=== PATIENT | male | born 1975 | race Caucasian/White ===

== ENCOUNTER 2017-02-21 15:16 | Emergency (ER) | payer MEDICARE, MEDICAID ==
[~2017-02-21] VITALS: Ht 188 cm; Wt 76.2 kg
[~2017-02-21 15:16] MED LIST: AMOXICILLIN 50500 MG PO; AVPAK AZITHROM250 MG PO; FLEXERIL10 MG PO; GENSING OR; IBU-8800 MG PO; KEFLEX 500MG.500 MG PO; LORTAB 5/500 501 TAB PO; LYRICA75 MG PO; NAPROSYN500 M1 PO; ROBAXIN-750750 MG PO; TAMIFLU 75MG CA75 MG PO; TORADOL10 MG PO; TYLENOL W/CODEI1 TA2 PO; VICODIN 5/500 T1 TAB PO; VOLTAREN75 MG PO; WELLBUTRIN 150150 MG PO
[2017-02-21] MEDS ORDERED: FLONASE 50 MCG16 GM (15:43)
[2017-02-21] MEDS ORDERED: CLARITIN 10MG T10 MG PO (15:43)
[2017-02-21 15:44] VITALS: BP 167/59
--- NOTE | 2017-02-21 15:44 | Urgent Treatment Center Report ---
History of Present Issue Date/Time Seen by Provider 02/21/17 1530 Visit Reason Pt arrived:Walked Presenting Problem:BOTH EARS HURT AND H/A FOR 3 WEEKS Location if Accident: Onset of symptoms date/time:/ or onset unknown for:MEDICAL HX UNKNOWN Have you (or family members/close friends) recently traveled outside the [place]? N If Yes, where/when: Have you had exposure to infectious disease within the past month? TB? Other? Specify: c/o continued pain curtis ears with intermittent headaches. Present for 3-4 weeks now. Was seen at clinic approx 2 weeks ago. Dx curtis OM per report and prescribed amoxicillin. Completed 10 day prescription. pain changed. Now more pressure. Worse at night. No fever. + rhinorrhea, sneezing, PND. No other medications or treatments have been tried. Reports BP always high at medical appointments. Did check it recently at [facility]. Number unknown. "Just said I am at risk". Has not discussed w/ PCP, Dr. Valenzuela. Denies chest pain or SOA. Gets lightheaded at times w/ moving quickly. Drinks multiple energy drinks/red bulls as well as coffee throughout the day. Source patient, family Exam Limitations no limitations ALLERGIES Coded Allergies: diphenhydramine (From BENADRYL) (Mild, 12/13/15) peanut (Mild, 12/13/15) Home Medications Reported Medications Pregabalin (Lyrica 75MG) 75 MG PO BID #60 History Medical History General CAD? No Angina: No [place]: No Hypertension? No Hyperlipidemia? No CHF? No DVT? No PE? No COPD? No Asthma? No Anemia? No GERD? No Gastric ulcers? No GI Bleed? No Hernia? No Thyroid Problems? No Hypothyroidism? No CVA? No Seizures? No Diabetes? No Renal Insuffiency? No UTI? No Stones? No BPH? No GB Disease: No Nephritic Syndrome? No Asplenia? No Hepatitis? No Sickle Cell Disease? No Arthritis? No Migraines? No Cataracts? No Glaucoma? No MRSA? No HIV? No TB? No Anxiety? No Depression? No Cancer? No Immunization HX DT/Tetanus 1-4 Years Ago Surgical Hx Previous Surgery?Y LEFT AKA Tonsils BILATERAL EARTUBES GALLBLADDER Social History Smoking Hx Smoker: Current Every Day Smoker Tobacco: Yes Type Cigarettes Packs/day < 1 Pack Alcohol Alcohol: No Review of Systems All Other Systems Reviewed and Negative Constitutional denies fever, denies malaise, denies weakness Eyes denies drainage, denies pain, denies vision change ENT see HPI, nose congestion ("a little here and there"), throat pain ("at times in the morning"). denies: ear discharge, throat swelling, other (change in hearing ). Respiratory see HPI, denies cough Cardiovascular see HPI, denies edema, denies palpitations Gastrointestinal denies nausea, denies vomiting Skin denies rash Psychiatric/Neurological see HPI, denies numbness, denies tingling Physical Exam Vital Signs Vital Signs Date Time Temp Pulse Resp B/P Pulse O2 O2 Flow FiO2 Ox Delivery Rate 02/21 1524 97.9 70 20 167/59 98 General Appearance no apparent distress, left BKA Eye Exam - bilateral eye normal exam Ear, Nose, Throat curtis EACs and TMs normal, clear fluid bubbles visible behind TMs, turbinates boggy, thick clear PND w/ cobblestoning Neck non-tender, supple Respiratory Status No: respiratory distress, productive cough, non productive cough. Lung Sounds anterior: lungs clear. posterior: lungs clear. bilateral: lungs clear. Cardiovascular regular rate/rhythm, no peripheral edema, no murmur Neurologic alert, oriented x 3 Mental status normal mood/affect Skin normal color, warm/dry Lymphatic no adenopathy Medical Decision Making LABS/Meds/Orders Pt receiving controlled substance in ED? No Progress [facility] Progress Notes Date 02/21/17 Time 1538 Comment Tried to discuss dx, risks and POC with patient. He continously makes jokes of his past situation (amputation) as well as current symptoms. "You only live once " pt reports Departure Departure Time of Disposition 1536 Disposition DC Home or Self Care(routine) Clinical Impression Primary Impression: Environmental allergies Secondary Impressions: High blood pressure Qualifiers: Hypertension type: unspecified Qualified Code: I10 - Essential ( primary) hypertension Condition STABLE Referrals CHARLEE VALENZUELA Call today and schedule follow up appt to discuss high blood pressure. You need treatment. Without treatment, you are at great risk for further medical complications including but not limited to heart attack, stroke, and even . Patient Instructions DI for Allergic Rhinitis, DI for High Blood Pressure Additional Instructions Start claritin daily Start flonase 2 sprays each nostril daily sleep elevated humidifier/vaporizer as needed avoid sodium in your food and drinks wean caffeine. This includes energy drinks and coffee follow up with PCP for treatment and further workup for high blood pressure Discharge Counseling Counseled pt/family regarding diagnosis, medications/RX, home care, follow up needs Prescriptions Current Visit Scripts Loratadine (Claritin 10MG) 10 MG PO DAILY #30 TAB Fluticasone Propionate (Flonase 50 Mcg Nasal [place]) 2 SPRAY NA DAILY #1 BOT at 1554
--- OUTSIDE RECORDS SUMMARY | 2017-03-01 14:44 | External Medical Summary Rpt | CCD ---
Author Author , HARLEY SOUZA Address Unknown Phone [email or web address] Purpose Continuity of Care Document - through 2016
--- OUTSIDE RECORDS SUMMARY | 2017-03-01 14:44 | External Medical Summary Rpt | CCD ---
Demographics Preferred Language Pakistani Marital Status Unknown Sikh Affiliation Unknown Race Unknown Ethnic Group Unknown Author Author , HARLEY SOUZA Address Unknown Phone Immunization No patient found.
--- OUTSIDE RECORDS SUMMARY | 2017-03-01 14:44 | External Medical Summary Rpt | CCD ---
Author Author , HARLEY SOUZA Address Unknown Phone [email or web address] Purpose Continuity of Care Document - through 2016
--- OUTSIDE RECORDS SUMMARY | 2017-03-01 14:44 | External Medical Summary Rpt | CCD ---
Author Author [employer] Address Unknown Phone Unavailable Purpose Continuity of Care Document - through 2016
--- OUTSIDE RECORDS SUMMARY | 2017-03-01 14:44 | External Medical Summary Rpt ---
Author Author HARLEY Solitario, HARLEY Sol[employer] Organization [employer] Address Unknown Phone Unavailable
--- OUTSIDE RECORDS SUMMARY | 2017-03-01 14:44 | External Medical Summary Rpt | CCD ---
Demographics Preferred Language Bahraini Marital Status Unknown Gnosticist Affiliation Unknown Race Unknown Ethnic Group Unknown Author Author , HARLEY SOUZA Address Unknown Phone Immunization No patient found.
== END 2017-02-21 15:45 | disposition home or self-care (01) ==
LOC: UTC 15:16
DX: J30.2 Other seasonal allergic rhinitis (principal); I10 Essential (primary) hypertension; Z88.8 Allergy status to other drugs, medicaments and biological substances

== ENCOUNTER 2017-02-26 17:19 | Emergency (ER) | payer MEDICARE ==
[~2017-02-26] VITALS: Ht 188 cm; Wt 72.6 kg
[~2017-02-26 17:19] MED LIST changes: +CLARITIN 10MG T10 MG PO; +FLONASE 50 MCG16 GM
--- NOTE | 2017-02-26 17:40 | Emergency Room Report ---
History of Present Illness Time Seen by 1254 Presenting Problem in Triage Pt arrived:Walked Presenting Problem:PT STATES HE WAS PULLING UP ON A TIRE AND FELT A PULL IN HIS EPIGASTRIC AREA THAT RADIATES INTO RIGHT ABDOMEN. PT STATES HE NOW HAS A "KNOT " AT THE SITE AND THAT HE IS CONCERNED BECAUSE HE HAD HIS GALBLADDER SURGERY THERE. Onset of symptoms date/time:/ or onset unknown for:MEDICAL HX UNKNOWN Treatment Prior to Arrival: ADMINISTRATIVE TECH Provided by: Sepsis Risk Assessment: Temp: 98.6 B/P: 146/96 MAP: 112 Pulse: 98 Resp: 20 Recent fever? N Clinical Suspician of Infection? N Mental Status: 1 - Regular (Normal Baseline) Sepsis Risk:Possible Sepsis Risk Have you (or family members/close friends) recently traveled outside the [place]? N If Yes, where/when: Have you had exposure to infectious disease within the past month? TB? Other? Specify: Right rib pain since changing a tire four days ago. No SOB. No vomiting. No blood from above or below. Pain is positional. 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 ALLERGIES Coded Allergies: diphenhydramine (From BENADRYL) (Mild, 12/13/15) peanut (Mild, 12/13/15) Home Medications Active Scripts Loratadine (Claritin 10MG) 10 MG PO DAILY #30 TAB Prov: 02/21/17 Fluticasone Propionate (Flonase 50 Mcg Nasal [place]) 2 SPRAY NA DAILY #1 BOT Prov: 02/21/17 Reported Medications Pregabalin (Lyrica 75MG) 75 MG PO BID #60 History Medical History General CAD? No Angina: No [place]: No Hypertension? No Hyperlipidemia? No CHF? No DVT? No PE? No COPD? No Asthma? No Anemia? No GERD? No Gastric ulcers? No GI Bleed? No Hernia? No Thyroid Problems? No Hypothyroidism? No CVA? No Seizures? No Diabetes? No Renal Insuffiency? No End Stage Renal Disease? No UTI? No Stones? No BPH? No GB Disease: No Nephritic Syndrome? No Asplenia? No Hepatitis? No Sickle Cell Disease? No Arthritis? No Migraines? No Cataracts? No Glaucoma? No MRSA? No HIV? No TB? No Anxiety? No Depression? No Cancer? No Immunization Hx DT/Tetanus 1-4 Years Ago Surgical Hx Previous Surgery?Y LEFT AKA Tonsils BILATERAL EARTUBES GALLBLADDER Social History Smoking Hx Smoker: Current Every Day Smoker Tobacco: Yes Type Cigarettes Packs/day < 1 Pack Alcohol Alcohol: No Review of Systems All Other Systems Reviewed and Negative Musculoskeletal see HPI Physical Exam Vital Signs Vital Signs Date Time Temp Pulse Resp B/P Pulse O2 O2 Flow FiO2 Ox Delivery Rate 02/26 1727 98.6 98 20 146/96 98 General Appearance normal appearance, WD/WN, no apparent distress (mirrored sunglasses) Neck normal inspection, non-tender, supple, full range of motion Respiratory Status Yes: trachea midline, chest symmetrical, non tender chest, tender on palpation. No: respiratory distress, use of accessory muscles, pain on inspiration, pain on expiration, productive cough, non productive cough (R ribs musculature tender). Lung Sounds bilateral: normal breath sounds, lungs clear (no subcutaneous air). Cardiovascular normal exam, regular rate/rhythm, no peripheral edema, no JVD, no murmur Gastrointestinal normal bowel sounds, normal exam, soft, no organomegaly, no pulsatile mass, no guarding, no rebound, tenderness (right ribs, inferiorly/ mediall) Extremities non-tender (hx crush/amputation LAKA) Neurologic alert, normal exam, no motor/sensory deficits (L AKA) Glascow Coma Scale Glascow Coma Scale Response Value EYE response: 4 Spontaneously 4 MOTOR response: 6 OBEYS 6 VERBAL response: 5 Oriented & Converses 5 Total 15 Mental status normal mood/affect Medical Decision Making LABS/Meds/Orders Pt receiving controlled substance in ED? No Results/Orders Orders Procedure Date/time Status KUB (SINGLE VIEW) 02/26 1737 Active CHEST-PORTABLE 02/26 1737 Active XRAY/CT/US XRAY/CT/US XRAY chest, abdomen XR interpretation by reviewed by me Xray Results normal/NAD, no infiltrates, normal heart size, normal lung inflation curtis (increased stool neg FA or obst) Departure Departure Time of Disposition 1800 Disposition DC Home or Self Care(routine) Clinical Impression Primary Impression: Abdominal wall pain Condition STABLE Referrals CHARLEE VALENZUELA Patient Instructions DI for Musculoskeletal Pain Additional Instructions Rx Naproxen, use moist heat, see Dr. Valenzuela for recheck in one to two days. Discharge Counseling Counseled pt/family regarding diagnosis, test results, medications/RX, home care, follow up needs Prescriptions Current Visit Scripts NAPROXEN (NAPROXEN 500MG TAB) 500 MG PO BIDP PRN pain #20 TAB ED Critical Care Critical Care No at 1804
[2017-02-26] MEDS ORDERED: NAPROXEN SODIU500 MG PO (18:03)
[2017-02-26 18:06] VITALS: BP 130/76
--- NOTE | 2017-02-27 09:57 | RADIOLOGY REPORT PS360 ---
CHEST-PORTABLE HISTORY: Right-sided chest pain strained when lifting has R rib pain ORDERING PHYSICIAN: Jenni Fernandez MD PATIENT AGE: 41 years COMPARISON: 08/30/2011 FINDINGS: The cardiomediastinal silhouette and pulmonary vascularity are within normal limits. The lungs are clear without infiltrates, suspicious nodules, or pleural effusions. Old granulomatous disease. No acute bony abnormalities. Old right clavicular fracture IMPRESSION: No change with no acute finding
--- NOTE | 2017-02-27 09:57 | RADIOLOGY REPORT PS360 ---
KUB (SINGLE VIEW) HISTORY: strained when lifting has R rib pain ORDERING PHYSICIAN: Jenni Fernandez MD PATIENT AGE: 41 years COMPARISON: None FINDINGS: The bowel gas pattern is unremarkable. No obvious obstruction.. No abnormal calcifications are evident. No obvious renal or ureteral calculi.. No acute bony anomalies evident. There are surgical clips in right upper quadrant. IMPRESSION: Negative KUB, no acute finding
--- OUTSIDE RECORDS SUMMARY | 2017-03-03 03:13 | External Medical Summary Rpt | CCD ---
Author Author , HARLEY SOUZA Address Unknown Phone [email or web address] Purpose Continuity of Care Document - through 2016
--- OUTSIDE RECORDS SUMMARY | 2017-03-03 03:13 | External Medical Summary Rpt | CCD ---
Author Author , HARLEY SOUZA Address Unknown Phone Purpose Continuity of Care Document - through 2016
--- OUTSIDE RECORDS SUMMARY | 2017-03-03 03:13 | External Medical Summary Rpt | CCD ---
Demographics Preferred Language Zimbabwean Marital Status Unknown Buddhist Affiliation Unknown Race Unknown Ethnic Group Unknown Author Author , HARLEY SOUZA Address Unknown Phone Immunization No patient found.
--- OUTSIDE RECORDS SUMMARY | 2017-03-03 03:13 | External Medical Summary Rpt | CCD ---
Demographics Preferred Language German Marital Status Unknown Methodist Affiliation Unknown Race Unknown Ethnic Group Unknown Author Author , HARLEY SOUZA Address Unknown Phone Immunization No patient found.
== END 2017-02-26 18:06 | disposition home or self-care (01) ==
LOC: ER 17:19
DX: R10.816 Epigastric abdominal tenderness (principal); Z88.8 Allergy status to other drugs, medicaments and biological substances; F17.210 Nicotine dependence, cigarettes, uncomplicated

== ENCOUNTER 2017-03-23 11:31 | Emergency (ER) | payer MEDICARE ==
[~2017-03-23] VITALS: Ht 185.4 cm; Wt 84.8 kg
[~2017-03-23 11:31] MED LIST changes: +NAPROXEN SODIU500 MG PO
--- OUTSIDE RECORDS SUMMARY | 2017-03-23 11:49 | External Medical Summary Rpt | CCD ---
Author Author , HARLEY SOUZA Address Unknown Phone [email or web address] Purpose Continuity of Care Document - through 2016 Problems Code Diagnosis DOS Provider Status J40 BRONCHITIS, NOT SPECIFIED ACUTE OR CHRONIC R10.9 UNSPECIFIED ABDOMINAL PAIN T14.8 OTHER INJURY OF UNSPECIFIED BODY REGION
--- OUTSIDE RECORDS SUMMARY | 2017-03-23 11:49 | External Medical Summary Rpt ---
Author Author HARLEY Solit[employer], [employer] Address Unknown Phone Unavailable
--- OUTSIDE RECORDS SUMMARY | 2017-03-23 11:49 | External Medical Summary Rpt | CCD ---
Demographics Preferred Language Congolese Marital Status Unknown Orthodoxy Affiliation Unknown Race Unknown Ethnic Group Unknown Author Author , HARLEY SOUZA Address Unknown Phone Immunization No patient found.
--- OUTSIDE RECORDS SUMMARY | 2017-03-23 11:49 | External Medical Summary Rpt | CCD ---
Author Author , HARLEY SOUZA Address Unknown Phone [email or web address] Purpose Continuity of Care Document - through 2016 Problems Code Diagnosis DOS Provider Status J40 BRONCHITIS, NOT SPECIFIED ACUTE OR CHRONIC R10.9 UNSPECIFIED ABDOMINAL PAIN T14.8 OTHER INJURY OF UNSPECIFIED BODY REGION
--- OUTSIDE RECORDS SUMMARY | 2017-03-23 11:49 | External Medical Summary Rpt | CCD ---
Demographics Preferred Language Belgian Marital Status Unknown Yazdanism Affiliation Unknown Race Unknown Ethnic Group Unknown Author Author , HRALEY SOUZA Address Unknown Phone Immunization No patient found.
--- NOTE | 2017-03-23 11:57 | Emergency Room Report ---
History of Present Illness Time Seen by MD Babin Presenting Problem in Triage Pt arrived:Wheelchair Presenting Problem:PT STATES THAT HE FELL OVER THE DOG ON 03/20/17 WITH C/O OF BILATERAL HIP AND LOWER BACK PAIN Onset of symptoms date/time:03/20/17 or onset unknown for: Treatment Prior to Arrival: MANAGER SOUND Provided by: Sepsis Risk Assessment: Temp: 98.5 B/P: 162/78 MAP: 106 Pulse: 81 Resp: 18 Recent fever? N Clinical Suspician of Infection? N Mental Status: 1 - Regular (Normal Baseline) Sepsis Risk:Low Sepsis Risk Have you (or family members/close friends) recently traveled outside the [place]? N If Yes, where/when: Have you had exposure to infectious disease within the past month? N TB? Other? Specify: Comment The patient fell forward 4 days ago and injured his lower back. Complains of lumbar pain that radiates around to the LEFT side and into his LEFT hip area. 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 He has been unable to wear his prosthesis for the past couple of days. ALLERGIES Coded Allergies: diphenhydramine (From BENADRYL) (Mild, 12/13/15) peanut (Mild, 12/13/15) Home Medications Active Scripts NAPROXEN (NAPROXEN 500MG TAB) 500 MG PO BIDP PRN pain #20 TAB Prov: 02/26/17 Loratadine (Claritin 10MG) 10 MG PO DAILY #30 TAB Prov: 02/21/17 Fluticasone Propionate (Flonase 50 Mcg Nasal [place]) 2 SPRAY NA DAILY #1 BOT Prov: 02/21/17 Reported Medications Pregabalin (Lyrica 75MG) 75 MG PO TID #90 CAPSULE History Medical History General CAD? No Angina: No [place]: No Hypertension? No Hyperlipidemia? No CHF? No DVT? No PE? No COPD? No Asthma? No Anemia? No GERD? No Gastric ulcers? No GI Bleed? No Hernia? No Thyroid Problems? No Hypothyroidism? No CVA? No Seizures? No Diabetes? No Renal Insuffiency? No End Stage Renal Disease? No UTI? No Stones? No BPH? No GB Disease: No Nephritic Syndrome? No Asplenia? No Hepatitis? No Sickle Cell Disease? No Arthritis? No Migraines? No Cataracts? No Glaucoma? No MRSA? No HIV? No TB? No Anxiety? No Depression? No Cancer? No Immunization Hx DT/Tetanus 1-4 Years Ago Surgical Hx Previous Surgery?Y LEFT AKA Tonsils BILATERAL EARTUBES GALLBLADDER Social History Smoking Hx Smoker: Current Every Day Smoker Tobacco: Yes Type Cigarettes Packs/day < 1 Pack Alcohol Alcohol: No Review of Systems All Other Systems Reviewed and Negative Musculoskeletal back pain Psychiatric/Neurological denies numbness, denies weakness Physical Exam Vital Signs Vital Signs Date Time Temp Pulse Resp B/P Pulse O2 O2 Flow FiO2 Ox Delivery Rate 03/23 1234 98.5 75 18 142/97 98 03/23 1141 98.5 81 18 162/78 98 General Appearance no apparent distress Respiratory Status No: respiratory distress. Cardiovascular regular rate/rhythm, normal peripheral pulses Back no vertebral tenderness, LEFT lumbar muscular tenderness Extremities LEFT [id number] amputation., LEFT hip tenderness around the iliac crest Neurologic alert Medical Decision Making LABS/Meds/Orders Pt receiving controlled substance in ED? Yes Kash was queried for this patient? Yes Comment [id number] 13 rxs for lyrica. Results/Orders Orders Procedure Date/time Status LUMBAR SPINE 5 VIEWS 03/23 1152 Active HIP BILATERAL 2 VIEW MIN EACH 03/23 1152 Active XRAY/CT/US XRAY/CT/US XRAY hip, L-spine Comment Bilateral hip X-ray interpreted by Lucas Clement MD. Negative for fracture, dislocation, or foreign body. Lumbar X-ray interpreted by Lucas Clement MD. Negative for fracture, dislocation, or subluxation. Departure Departure Disposition DC Home or Self Care(routine) Clinical Impression Primary Impression: Lumbar strain Qualifiers: Encounter type: initial encounter Qualified Code: S39.012A - Strain of muscle, fascia and tendon of lower back, initial encounter Condition STABLE Patient Instructions DI for Low Back Pain Additional Instructions Additional instructions for BACK PAIN: See your physician as soon as possible for further evaluation. Return immediately if back pain becomes intolerable, or if fever, numbness or weakness of your legs, loss of control of your bowels or bladder. Additional instructions for CONTROLLED SUBSTANCES: You have been prescribed a medication that is a controlled substance. Controlled substances include pain medications known as opiates and sedative nerve medications known as benzodiazepines. Some common opiates include: Codeine (such as Tylenol #3) Hydrocodone (Vicodin, Lortab, Lorcet, [place]) Oxycodone (Percocet, Percodan, Oxycodone, Oxy IR) Some common benzodiazepines include: Diazepam (Valium) Lorazepam (Ativan) Alprazolam (Xanax) Clonazepam (Klonopin) Oxazepam (Serax) All of these controlled substances are highly addictive and frequently abused. Misuse can and frequently does lead to addiction as well as overdose and . Short term supplies, 3 days or less, are prescribed because of the highly addictive nature of the medication. Any of the controlled substance medication NOT taken should be disposed of properly and NOT SAVED. The recommended method of disposing of unused medications is: Place the medicines in a sealable plastic bag. If the medicine is a solid, crush it or add water to dissolve it. Add something undesirable (cat litter, coffee grounds, etc.) Dispose of sealed bag in household trash Do not flush or pour unused medicines down a sink or drain. Also, because of the addictive nature and frequent abuse, these medications are sometimes stolen. These medications should be kept in a safe place where they cannot be stolen. Do not keep them in your car or purse. Lost or stolen prescriptions for controlled substances WILL NOT BE REFILLED in this emergency department, regardless of whether a police report was filed. Prescriptions Current Visit Scripts TRAMADOL HCL (Tramadol) 50 MG PO Q6HP PRN pain #15 TAB ED Critical Care Critical Care No at 1241
--- NOTE | 2017-03-23 11:57 | Emergency Room Report ---
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 N Clinical Suspician of Infection? N Mental Status: 1 - Regular (Normal Baseline) Sepsis Risk:Low Sepsis Risk Have you (or family members/close friends) recently traveled outside the [place]? N If Yes, where/when: Have you had exposure to infectious disease within the past month? N TB? Other? Specify: Comment The patient fell forward 4 days ago and injured his lower back. Complains of lumbar pain that radiates around to the LEFT side and into his LEFT hip area. 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 He has been unable to wear his prosthesis for the past couple of days. ALLERGIES Coded Allergies: diphenhydramine (From BENADRYL) (Mild, 12/13/15) peanut (Mild, 12/13/15) Home Medications Active Scripts NAPROXEN (NAPROXEN 500MG TAB) 500 MG PO BIDP PRN pain #20 TAB Prov: 02/26/17 Loratadine (Claritin 10MG) 10 MG PO DAILY #30 TAB Prov: 02/21/17 Fluticasone Propionate (Flonase 50 Mcg Nasal Bond) 2 SPRAY NA DAILY #1 BOT Prov: 02/21/17 Reported Medications Pregabalin (Lyrica 75MG) 75 MG PO TID #90 CAPSULE History Medical History General CAD? No Angina: No PA: No Hypertension? No Hyperlipidemia? No CHF? No DVT? No PE? No COPD? No Asthma? No Anemia? No GERD? No Gastric ulcers? No GI Bleed? No Hernia? No Thyroid Problems? No Hypothyroidism? No CVA? No Seizures? No Diabetes? No Renal Insuffiency? No End Stage Renal Disease? No UTI? No Stones? No BPH? No GB Disease: No Nephritic Syndrome? No Asplenia? No Hepatitis? No Sickle Cell Disease? No Arthritis? No Migraines? No Cataracts? No Glaucoma? No MRSA? No HIV? No TB? No Anxiety? No Depression? No Cancer? No Immunization Hx DT/Tetanus 1-4 Years Ago Surgical Hx Previous Surgery?Y LEFT AKA Tonsils BILATERAL EARTUBES GALLBLADDER Social History Smoking Hx Smoker: Current Every Day Smoker Tobacco: Yes Type Cigarettes Packs/day < 1 Pack Alcohol Alcohol: No Review of Systems All Other Systems Reviewed and Negative Musculoskeletal back pain Psychiatric/Neurological denies numbness, denies weakness Physical Exam Vital Signs Vital Signs Date Time Temp Pulse Resp B/P Pulse O2 O2 Flow FiO2 Ox Delivery Rate 03/23 1234 98.5 75 18 142/97 98 03/23 1141 98.5 81 18 162/78 98 General Appearance no apparent distress Respiratory Status No: respiratory distress. Cardiovascular regular rate/rhythm, normal peripheral pulses Back no vertebral tenderness, LEFT lumbar muscular tenderness Extremities LEFT [id number] amputation., LEFT hip tenderness around the iliac crest Neurologic alert Medical Decision Making LABS/Meds/Orders Pt receiving controlled substance in ED? Yes Kash was queried for this patient? Yes Comment [id number] rxs for lyrica. Results/Orders Orders Procedure Date/time Status LUMBAR SPINE 5 VIEWS 03/23 1152 Active HIP BILATERAL 2 VIEW MIN EACH 03/23 1152 Active XRAY/CT/US XRAY/CT/US XRAY hip, L-spine Comment Bilateral hip X-ray interpreted by Lucas Clement MD. Negative for fracture, dislocation, or foreign body. Lumbar X-ray interpreted by Lucas Clement MD. Negative for fracture, dislocation, or subluxation. Departure Departure Disposition DC Home or Self Care(routine) Clinical Impression Primary Impression: Lumbar strain Qualifiers: Encounter type: initial encounter Qualified Code: S39.012A - Strain of muscle, fascia and tendon of lower back, initial encounter Condition STABLE Patient Instructions DI for Low Back Pain Additional Instructions Additional instructions for BACK PAIN: See your physician as soon as possible for further evaluation. Return immediately if back pain becomes intolerable, or if fever, numbness or weakness of your legs, loss of control of your bowels or bladder. Additional instructions for CONTROLLED SUBSTANCES: You have been prescribed a medication that is a controlled substance. Controlled substances include pain medications known as opiates and sedative nerve medications known as benzodiazepines. Some common opiates include: Codeine (such as Tylenol #3) Hydrocodone (Vicodin, Lortab, Lorcet, [place]) Oxycodone (Percocet, Percodan, Oxycodone, Oxy IR) Some common benzodiazepines include: Diazepam (Valium) Lorazepam (Ativan) Alprazolam (Xanax) Clonazepam (Klonopin) Oxazepam (Serax) All of these controlled substances are highly addictive and frequently abused. Misuse can and frequently does lead to addiction as well as overdose and . Short term supplies, 3 days or less, are prescribed because of the highly addictive nature of the medication. Any of the controlled substance medication NOT taken should be disposed of properly and NOT SAVED. The recommended method of disposing of unused medications is: Place the medicines in a sealable plastic bag. If the medicine is a solid, crush it or add water to dissolve it. Add something undesirable (cat litter, coffee grounds, etc.) Dispose of sealed bag in household trash Do not flush or pour unused medicines down a sink or drain. Also, because of the addictive nature and frequent abuse, these medications are sometimes stolen. These medications should be kept in a safe place where they cannot be stolen. Do not keep them in your car or purse. Lost or stolen prescriptions for controlled substances WILL NOT BE REFILLED in this emergency department, regardless of whether a police report was filed. Prescriptions Current Visit Scripts TRAMADOL HCL (Tramadol) 50 MG PO Q6HP PRN pain #15 TAB ED Critical Care Critical Care No at 1242
[2017-03-23] MEDS ORDERED: TRAMADOL50 M1 PO (12:19)
[2017-03-23 12:34] VITALS: BP 142/97
--- NOTE | 2017-03-23 12:49 | RADIOLOGY REPORT PS360 ---
EXAM: LUMBAR SPINE 5 VIEWS HISTORY: Posttraumatic pain FALL ORDERING PHYSICIAN: Lucas Clement MD PATIENT AGE: 41 years COMPARISON: None FINDINGS: Normal alignment. No fracture or dislocation. No lytic or blastic change. No significant degenerative change. The disc spaces are preserved. There is straightening of lumbar lordosis which could be due to patient positioning or muscle spasm. A small sclerotic focus is present in the left S1 transverse process consistent with a bone island. There is minimal lumbar curvature convex right. IMPRESSION: 1. No acute finding. 2. Straightening of lordosis which may be seen with muscle spasm
--- NOTE | 2017-03-23 12:59 | RADIOLOGY REPORT PS360 ---
HIP BILATERAL 2 VIEW MIN EACH CLINICAL INDICATION: Bilateral hip pain following injury FALL ORDERING PHYSICIAN: Lucas Clement MD PATIENT AGE: 41 years COMPARISON: None FINDINGS: No fracture or dislocation. No bony or joint abnormality. 8 mm sclerotic focus S1 segment on the left which may be due to a bone island. IMPRESSION: No acute finding
== END 2017-03-23 12:35 | disposition home or self-care (01) ==
LOC: ER 11:31
DX: S39.012A Strain of muscle, fascia and tendon of lower back, initial encounter (principal); W03.XXXA Other fall on same level due to collision with another person, initial encounter; Y92.019 Unspecified place in single-family (private) house as the place of occurrence of the external cause; Z89.612 Acquired absence of left leg above knee; F17.210 Nicotine dependence, cigarettes, uncomplicated